=== PATIENT | female | born 1965 | race Two or more races ===

== ENCOUNTER 2022-11-23 13:26 | Outpatient (CLI) | payer OTHER | END 2022-11-23 13:40 | disposition home or self-care (01) | LOC: PPH VACUNA 13:26 | PROVIDERS: ATTEND Emergency Medicine Pediatric Emergency Medicine | DX: Z23 Encounter for immunization (principal) ==

== ENCOUNTER 2023-05-16 | Outpatient (CLI) | payer OTHER | END 2023-05-16 00:15 | disposition home or self-care (01) | LOC: PPH VACUNA | PROVIDERS: ATTEND Emergency Medicine Pediatric Emergency Medicine | DX: Z23 Encounter for immunization (principal) | CPT/HCPCS: 90686; G0008 ==

== ENCOUNTER 2023-06-21 16:18 | Outpatient (CLI) | payer OTHER | END 2023-06-21 16:37 | disposition home or self-care (01) | LOC: RAD 16:18 | DX: M61.3 Calcification and ossification of muscles associated with burns (principal) ==

== ENCOUNTER 2023-06-26 08:45 | Outpatient (CLI) | payer OTHER | END 2023-06-26 08:51 | disposition home or self-care (01) | LOC: MAMO-SONO 08:45 | PROVIDERS: ATTEND Internal Medicine Cardiovascular Disease | DX: M12.9 Arthropathy, unspecified (principal); Z12.31 Encounter for screening mammogram for malignant neoplasm of breast; N60.12 Diffuse cystic mastopathy of left breast ==

== ENCOUNTER → 2023-07-15 08:22 | Outpatient (CLI) | payer OTHER ==
[~2023-07-15 08:22] MED LIST: COZAAR100 MG; HYSINGLA ER20 MG; LAMICTAL100 MG; LIPITOR40 MG PO
== END | disposition home or self-care (01) ==
LOC: LAB 08:22
PROVIDERS: ATTEND General Practice
DX: Z20.822 Contact with and (suspected) exposure to COVID-19 (principal); Z88.0 Allergy status to penicillin

== ENCOUNTER 2023-07-15 10:34 | Emergency (ER) | payer OTHER ==
[~2023-07-15] VITALS: Ht 170.2 cm; Wt 90.7 kg
[2023-07-15] MEDS ORDERED: LIPITOR40 MG PO (10:47)
[2023-07-15] MEDS ORDERED: COZAAR100 MG (10:48)
[2023-07-15] MEDS ORDERED: HYSINGLA ER20 MG (10:48)
[2023-07-15] MEDS ORDERED: LAMICTAL100 MG (10:48)
== END 2023-07-15 11:11 | disposition home or self-care (01) ==
LOC: ER 10:34
DX: R05.9 Cough, unspecified (principal); Z88.0 Allergy status to penicillin

== ENCOUNTER → 2023-07-24 13:16 | Outpatient (CLI) | payer OTHER | END | disposition home or self-care (01) | LOC: NUCLEAR 13:00 | PROVIDERS: ATTEND Internal Medicine Cardiovascular Disease | DX: M81.0 Age-related osteoporosis without current pathological fracture (principal); E55.9 Vitamin D deficiency, unspecified ==